=== PATIENT | male | born 1995 | race African-American/Black ===

== ENCOUNTER 2019-12-25 17:32 | Emergency (ER) | payer SELFPAY ==
[~2019-12-25] VITALS: Ht 170.2 cm; Wt 68.1 kg
[~2019-12-25 17:32] MED LIST: NAPR-683 PO; TRAM50TA PO
[2019-12-25 18:11] VITALS: BP 134/64
--- NOTE | 2019-12-25 19:21 | ED.ADGEN ---
Past Medical History Past Medical History: No Pertinent History Past Surgical History: No Surgical History Smoking Status: Never Smoker Alcohol Use: Rarely General Adult EDM: Chief Complaint: NAUSEA/VOMITING/DIARRHA HPI: HPI: Patient is a 24 year old AA male, accompanied by his significant other, who presents to the emergency room with concerns of increased nausea and decreased appetite over the last 2 weeks. Patient states every time he tries to eat food he becomes so nauseous that he is unable to tolerate it. He denies any vomiting. The patient states that the only thing that has helped him be able to eat is if he smokes marijuana. Patient reports that if he smokes marijuana he is able to eat without vomiting. Patient reports that he has had problems eating throughout his entire life. He reports that he is able to drink fluids without any problems. He denies any abdominal pain, back pain, diarrhea, fever, cough, shortness of breath, body aches, or fatigue. Patient currently denies any pain. Review of Systems: Review of Systems: Complete ROS is negative unless otherwise noted in HPI. Allergies: Allergies: Allergies Coded Allergies Type Severity Reaction Last Updated Verified No Known Drug Allergies 12/25/19 No Physical Exam: PE: See Above Constitutional: Well developed, well nourished, no acute distress, non-toxic appearance. [] HENT: Normocephalic, atraumatic, bilateral external ears normal, nose normal. [] Eyes: PERRLA, EOMI, conjunctiva normal, no discharge. [] Neck: Normal range of motion, no stridor. [] Cardiovascular:Heart rate regular rhythm Lungs & Thorax: Respirations even and unlabored, no retractions, no respiratory distress Abdomen: soft, no tenderness Skin: Warm, dry, no erythema, no rash. [] Extremities: No cyanosis, ROM intact, no edema. [] Neurologic: Alert and oriented X 3, no focal deficits noted. [] Psychologic: Affect normal, judgement normal, mood normal. [] Current Patient Data: Vital Signs: Vital Signs Date Time Temp Pulse Resp B/P (MAP) Pulse Ox O2 Delivery O2 Flow Rate FiO2 12/25/19 18:11 98.1 71 16 134/64 (87) 99 98.1 EKG: EKG: [] Heart Score: Risk Factors: Risk Factors: DM, Current or recent (<one month) smoker, HTN, HLP, family history of CAD, obesity. Risk Scores: Score 0 - 3: 2.5% MACE over next 6 weeks - Discharge Home Score 4 - 6: 20.3% MACE over next 6 weeks - Admit for Clinical Observation Score 7 - 10: 72.7% MACE over next 6 weeks - Early Invasive Strategies Radiology/Procedures: Radiology/Procedures: [] Course & Med Decision Making: Course & Med Decision Making Pertinent Labs and Imaging studies reviewed. (See chart for details) 24-year-old male presents emergency room with reports of inability to tolerate solid foods due to extreme nausea. Patient denied any abdominal pain, diarrhea, urinary complaints, fever, cough, shortness of breath, or chest pain. His vital signs were stable. He reported that the nausea was only brought on when he would eat solid foods and denied any nausea at the time of exam. He stated that he is able to tolerate fluids without any problem. Patient reported that the only time he is able to eat food and feel hungry is if he smokes marijuana. I advised the patient that there is no emergent condition present, I encouraged him to follow-up with a primary care doctor or office clerk for further evaluation and work-up of a chronic problem. I told the patient that if the only thing that helps him to eat is smoking marijuana then he should continue to do so. Patient asked if I was able to give him a prescription for medical marijuana, I advised him that I am not able to prescribe marijuana in the ER. Patient left prior to receiving his written discharge instructions, however he was provided with oral discharge instructions by myself. I discussed the patient with Dr. Ernst, who was in agreement with my plan of care. [] Dragon Disclaimer: Dragon Disclaimer: This electronic medical record was generated, in whole or in part, using a voice recognition dictation system. Departure Departure Impression: Primary Impression: Nausea alone Additional Impression: Encounter for medical screening examination Disposition: 01 DC HOME SELF CARE/HOMELESS Condition: STABLE Referrals: FARHANA SANZ MD Patient Instructions: Medical Screening Exam, Nausea, Adult, [id number] Additional Instructions: Follow-up with a primary care doctor or office clerk Dr. Sanz for further evaluation of your chronic nausea. Return to the ER if your symptoms worsen or you develop a fever. [facility] [address] [address] [facility] [address] [place] [address] [facility] [address] [place] [address] [facility] [address] [place] [address] [facility] [address] [place] [address] [facility] [address] [place] [address] [facility] [address] [place] [address] [facility] [address] [place] [address] [facility] [address] [place] [address] [facility] [address] [place] [address] Problem Qualifiers MIGDALIA SOLIS APRN Dec 25, 2019 19:21
== END 2019-12-25 19:26 | disposition home or self-care (01) ==
LOC: MERGE 17:32 → ER 17:32
DX: R11.0 Nausea (principal); R63.0 Anorexia; F12.90 Cannabis use, unspecified, uncomplicated
CPT/HCPCS: 99281